=== PATIENT | male | born 1955 | race African-American/Black ===

== ENCOUNTER 2017-09-30 17:53 | Emergency (ER) | payer OTHER ==
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
== END 2017-09-30 18:30 | disposition other institution (70) ==
LOC: ER 17:53
DX: S01.511A Laceration without foreign body of lip, initial encounter (principal); F10.129 Alcohol abuse with intoxication, unspecified; V89.2XXA Person injured in unspecified motor-vehicle accident, traffic, initial encounter; F17.200 Nicotine dependence, unspecified, uncomplicated
CPT/HCPCS: 99283